=== PATIENT | female | born 1950 | race Caucasian/White ===

== ENCOUNTER 2024-11-20 14:43 | Emergency (ER) | payer MEDICARE, SELFPAY ==
[2024-11-20 14:53] VITALS: BP 141/65; PULSE 91; RESP 20; TEMP 37; O2SAT 97
--- NOTE | 2024-11-20 15:03 | ED.GENADUL_ITS ---
Discharge Plan Disposition Patient Disposition: Home Condition: Stable Discharge Details Clinical Impression: Laceration of finger Primary Care Provider: Reji Zuñiga ED Provider: Martha Lucas Home Meds and New Rx's Prescriptions: No Action Crinone 1.125 GM gel 1.125 gm IX DAILY Patient Comments: topical to arms Premarin 0.625 MG tablet 0.625 mg DAILY Patient Comments: topical to arms cholecalciferol (vitamin D3) [Vitamin D3] 2,000 UNIT capsule 2,000 unit PO DAILY Discharge Instructions Instructions: Wound Care ED Additional Instructions: You were seen in the emergency department today for evaluation of a laceration to your pinky. In our department you had a full physical examination performed, and your wound is well approximated and not bleeding. You did not require stitches. We did update your tetanus vaccine, and I recommend continued wound care with topical antibiotic ointment, and keep the area clean and dry. It is okay to let soap and water run over the area when washing your hands, but please pat dry gently and Rebandage afterwards. Please follow-up with your primary care provider in the next few days to discuss this visit and any symptoms that change, worsen, or persist. Thank you for allowing us to be part of your care. HPI General Mode of arrival: ambulatory . Date/Time Provider Initiated Documentation: 11/20/24 14:50 . Limitations to Documentation: no limitations . Information obtained by: patient and old records reviewed . HPI Narrative: This is a 74-year-old female patient without significant past medical history who is presenting for evaluation of a laceration to her left pinky. The patient was working with [employer], and states that she worked too hard and got a little tired and clipped the side of her finger. There is a very small skin flap on the medial aspect of the left pinky, adjacent to but not involving the nail. She reports that she allowed it to bleed, then washed it out and used alcohol on it to prevent infection. She states that she applied a bandage and has not had any ongoing bleeding. She presented to care today because she is very concerned that she will develop tetanus, does not know when her last tetanus shot was. Prior to this event she was in her normal state of health, she does not believe that she has any foreign bodies in the wound, this is an isolated injury. Related Data Home Medications ?Medication ?Instructions ?Recorded ?Confirmed cholecalciferol (vitamin D3) 50 2,000 unit PO DAILY 02/23/18 11/20/24 mcg (2,000 unit) capsule (Vitamin D3) conjugated estrogens 0.625 mg 0.625 mg DAILY 02/23/18 03/16/18 tablet (Premarin) progesterone micronized 8 % 1.125 gm IX DAILY 02/23/18 11/20/24 vaginal gel (Crinone) Allergies Allergy/AdvReac Type Severity Reaction Status Date / Time VERSED AdvReac Severe Severe Uncoded 11/20/24 14:55 vomiting General Stated Complaint: Laceration ANGE: 5 Exam Narrative Exam Narrative: Gen: Awake and alert, in no apparent distress HEENT: Non-icteric sclera Neck: Supple Lungs: No apparent respiratory distress, normal respiratory effort. CV: Appears well perfused Abdomen: Non-distended MSK: Moves 4 extremities without apparent limitation in ROM Skin: Visualized skin without rashes, cyanosis. Small skin flap appreciated medial aspect of the left fifth digit, adjacent to but not involving the fingernail/nailbed. The wound is well-approximated, hemostatic, and the patient has preserved sensation, circulation, and strength of this digit. Neuro: Normal Gait, no obvious focal deficits or facial asymmetry. Speaks in full, clear sentences. Psych: Appropriate for situation. Course Vital Signs Vital signs: Vital Signs Temperature 37.0 C 11/20/24 14:53 Pulse 91 H 11/20/24 14:53 Respiratory Rate 20 11/20/24 14:53 Blood Pressure 141/65 H 11/20/24 14:53 Pulse Oximetry 97 11/20/24 14:53 Temperature 37.0 C 11/20/24 14:53 Pulse 91 H 11/20/24 14:53 Respiratory Rate 20 11/20/24 14:53 Blood Pressure 141/65 H 11/20/24 14:53 Blood Pressure Position Sitting 11/20/24 14:53 Pulse Oximetry 97 11/20/24 14:53 Oxygen Delivery Method Room Air 11/20/24 14:53 Oxygen Flow Rate 0 11/20/24 14:53 Medical Decision Making In brief, this is a 74-year-old female patient presenting for evaluation of a pinky laceration. My differential includes but is not limited to laceration/skin avulsion, no evidence for foreign body on my physical examination, mechanism less consistent with fracture or dislocation. The heidi ent cleaned the wound thoroughly, and I have a low concern for the development of wound infection. I will provide her with a tetanus booster today. I do not see an indication at this time to proceed with laboratory studies or imaging, the patient does not require sutures for this wound that is already well- approximated, small, and hemostatic. At this time, the patient has had a full medical evaluation and is safe for discharge to home. They are hemodynamically stable, ambulatory, and tolerating PO. They are understanding of the follow-up plan and return precautions. They left our facility without incident. Martha Lucas MD Quality:SDOH Health Related Social Needs: No Data to Display PFSH All Active Problems (Updated 11/20/24 @ 15:04 by Martha Lucas MD) Laceration of finger (Acute) Social History Smoking/Tobacco Use Status: Never Smoking risk assessment performed?: Yes Drug use: Never
[2024-11-20] MEDS: Diph,Pertuss(Acell),Tet Vac/Pf 0.5 ML SYR IM (15:20)
== END 2024-11-20 15:21 | disposition home or self-care (01) ==
LOC: ER 15:11
PROVIDERS: Emergency Provider Emergency Medicine; PCP Family Medicine
DX: S61.217A Laceration without foreign body of left little finger without damage to nail, initial encounter (principal); Z23 Encounter for immunization; W27.1XXA Contact with garden tool, initial encounter; Y93.H2 Activity, gardening and landscaping; Y92.017 Garden or yard in single-family (private) house as the place of occurrence of the external cause
CPT/HCPCS: 90471; 90715; 99283